=== PATIENT | male | born 1995 | race Two or more races ===

== ENCOUNTER 2021-05-03 03:16 | Emergency (ER) | payer OTHER ==
[~2021-05-03] VITALS: Ht 195.6 cm; Wt 110.2 kg
[2021-05-03 09:59] VITALS: BP 144/72
[2021-05-03] MEDS ORDERED: KETOROLAC TROMETH 60MG/2ML VIAL IM ONE (10:00)
== END 2021-05-03 12:57 | disposition home or self-care (01) ==
LOC: ER 03:16
DX: M62.830 Muscle spasm of back (principal)
CPT/HCPCS: 70450; 72125; 72131; 96372; 99284; J1885